=== PATIENT | male | born 2000 | race Two or more races ===

== ENCOUNTER 2021-03-01 12:15 | Emergency (ER) | payer SELFPAY ==
[~2021-03-01] VITALS: Ht 172.7 cm; Wt 165.0 kg
[2021-03-01 13:31] VITALS: BP 119/67
--- NOTE | 2021-03-01 13:56 | PHYS DOC ---
Past Medical History Past Surgical History: No Surgical History [facility] General Adult EDM: Chief Complaint: KNEE INJURY HPI: HPI: Patient is a 20 year old male who presents with patient was playing soccer and was hit by another player in the medial left knee. He states it feels unstable when he is having a " shock-like" pain in the knee. He is able to bear weight but is painful. He denies any numbness or tingling. He has not used ice or taken any ibuprofen to help his symptoms. He has no other past medical history. ([facility] Review of Systems: Review of Systems: Constitutional: Denies fever or chills. [] Eyes: Denies change in visual acuity. [] HENT: Denies nasal congestion or sore throat. [] Respiratory: Denies cough or shortness of breath. [] Cardiovascular: Denies chest pain or + left knee edema. [] GI: Denies abdominal pain, nausea, vomiting, bloody stools or diarrhea. [] : Denies dysuria. [] Musculoskeletal: Denies back pain or +Left knee joint pain. [] Integument: Denies rash. [] Neurologic: Denies headache, focal weakness or sensory changes. [] Endocrine: Denies polyuria or polydipsia. [] Lymphatic: Denies swollen glands. [] Psychiatric: Denies depression or anxiety. [] ([facility]) Heart Score: C/O Chest Pain: No [facility] Allergies: Allergies: Allergies Coded Allergies Type Severity Reaction Last Updated Verified No Known Drug Allergies 03/01/21 No ([facility] Physical Exam: PE: Constitutional: Well developed, well nourished, no acute distress, non-toxic appearance. [] HENT: Normocephalic, atraumatic, bilateral external ears normal, oropharynx moist, no oral exudates, nose normal. [] Eyes: PERRLA, EOMI, conjunctiva normal, no discharge. [] Neck: Normal range of motion, no tenderness, supple, no stridor. [] Cardiovascular:Heart rate regular rhythm, no murmur [] Lungs & Thorax: Bilateral breath sounds clear to auscultation [] Abdomen: Bowel sounds normal, soft, no tenderness, no masses, no pulsatile masses. [] Skin: Warm, dry, no erythema, no rash. Bruising to left medial knee. [] Back: No tenderness, no CVA tenderness. [] Extremities: Left medial knee tenderness, no cyanosis, no clubbing, ROM intact painful, left medial knee 1+ edema. [] Neurologic: Alert and oriented X 3, normal motor function, normal sensory function, no focal deficits noted. [] Psychologic: Affect normal, judgement normal, mood normal. [] (SILVESTRE ODOM APRN) Current Patient Data: Vital Signs: Vital Signs Date Time Temp Pulse Resp B/P (MAP) Pulse Ox O2 Delivery O2 Flow Rate FiO2 03/01/21 13:31 98.1 75 16 119/67 (84) Room Air 98.1 (SILVESTRE ODOM APRN) EKG: EKG: [] (SILVESTRE ODOM APRN) Radiology/Procedures: Radiology/Procedures: [] Impression: [facility] [address] [place] [address] IMAGING REPORT Signed PATIENT: MIESHA LEAL ACCOUNT: [id number] : 2000 LOCATION: ER AGE: 20 SEX: M EXAM STATUS: REG ER ORD. PHYSICIAN: SILVESTRE ODOM APRN REASON: medial knee pain after it was hit during soccer game PROCEDURE: KNEE LEFT 3V EXAM: LEFT KNEE, 3 VIEWS. HISTORY: Pain after injury. COMPARISON: None. FINDINGS: No fractures are identified. Joint spaces are maintained. Alignment is normal. There is no joint effusion. IMPRESSION: 1. No fracture or joint effusion. Electronically signed by: Kem Lauren MD (03/01/2021 2:11 PM) [facility] DICTATED and SIGNED BY: REGINE LAUREN MD DATE: 03/01/21 [id number] (SILVESTRE ODOM APRN) Course & Med Decision Making: Course & Med Decision Making Pertinent Labs and Imaging studies reviewed. (See chart for details) See HPI. Alert and oriented x4. Ambulatory but limping on left lower extremity. Left knee is 1+ swollen. Slight bruising seen to medial knee. Tenderness to the medial knee. He does have control over the joint. Does not seem to have any laxity in the joint. Sensations intact. Can wiggle his toes. Pedal pulse strong present. No deformity or redness to the joint. Patient is given ibuprofen and placed in a knee immobilizer. [] (SILVESTRE ODOM APRN) Dragon Disclaimer: Dragon Disclaimer: This electronic medical record was generated, in whole or in part, using a voice recognition dictation system. (SILVESTRE ODOM APRN) Departure Departure Impression: Primary Impression: Knee pain, left Qualified Codes: M25.562 - Pain in left knee Disposition: HOME / SELF CARE / HOMELESS Condition: STABLE Referrals: NO PCP (PCP) MAYELIN HERNANDEZ DO Patient Instructions: Knee Sprain Additional Instructions: Follow-up with either primary care or the orthopedic as soon as possible. Do not play any sports until you are seen by the orthopedic and they tell you it is okay. Use ice and elevation and ibuprofen to help with your pain. Wear the knee immobilizer until you are seen by orthopedic doctor. If you begin having any numbness or tingling or redness to the joint return to the emergency room. Scripts Crutch (CRUTCH) 1 Each Each PAIR UD, #1 DISPENSE: 1 PAIR OF CRUTCHES. PATIENT TO USE INSTRUCTED BY PROVIDER. Prov: SILVESTRE ODOM APRN 03/01/21 Ibuprofen (IBUPROFEN) 600 Mg Tablet 600 MG PO PRN Q6HRS PRN for INFLAMMATION, #26 TAB Prov: SILVESTRE ODOM APRN 03/01/21 Attending Signature Attending Signature I have reviewed the PA/TA[employer]ICAL [employer] PL[employer] OFFICER's note and plan of care. I was available for co nsultation as needed during the patient's visit in the emergency department. I agree with the clinical impression, plan, and disposition. (NITIN ALEJO DO) SILVESTRE ODOM APRN Mar 01, 2021 13:56 NITIN ALEJO DO Mar 01, 2021 17:39
[2021-03-01] MEDS ORDERED: IBUPROFEN 200 MG TABLET. PO ONE (14:00)
--- NOTE | 2021-03-01 14:13 | RAD ---
EXAM: LEFT KNEE, 3 VIEWS. HISTORY: Pain after injury. COMPARISON: None. FINDINGS: No fractures are identified. Joint spaces are maintained. Alignment is normal. There is no joint effu ines. IMPRESSION: 1. No fracture or joint effusion. Electronically signed by: Kem Lauren MD (03/01/2021 2:11 PM) [facility]
[2021-03-01] MEDS ORDERED: IBUP-1007 PO (14:17)
[2021-03-01] MEDS ORDERED: CRUT1EAC3 MC (14:24)
== END 2021-03-01 14:46 | disposition home or self-care (01) ==
LOC: ER 12:15
DX: S80.02XA Contusion of left knee, initial encounter (principal); W51.XXXA Accidental striking against or bumped into by another person, initial encounter; Y93.66 Activity, soccer; Y92.89 Other specified places as the place of occurrence of the external cause; Y99.8 Other external cause status
CPT/HCPCS: 29505; 73562; 99283